=== PATIENT | male | born 1970 | race Caucasian/White ===

== ENCOUNTER 2024-01-29 09:50 | Day surgery (SDC) | payer OTHER ==
[2024-01-23 14:26] VITALS: BMI 33.3
[~2024-01-29 09:50] MED LIST: ALPRAZolam 0.25 MG TAB PO PRN; ASPIRIN 325 MG TAB PO STA; HEPARIN SODIUM,PORCINE (1 ML) 2,500 UNIT in SODIUM CHLORIDE 0.9% 250 ML IRRIGATION PRN; HEPARIN SODIUM,PORCINE 10,000 UNIT in SODIUM CHLORIDE 0.9% 1,000 ML IRRIGATION PRN; NITROGLYCERIN SL TABS 0.4 MG TAB SUBLINGUAL PRN
[2024-01-29] MEDS: SODIUM CHLORIDE 0.9% 1,000 ML in EMPTY BAG 1 BAG IV SCH (10:31)
[2024-01-29] MEDS: ALPRAZolam 0.5 MG TAB PO PRN (10:31)
[2024-01-29] MEDS: IV FLUID CONTINUATION 1,000 ML IV ONE (10:33)
[2024-01-29 10:36] VITALS: RESP 20; TEMP 96.9
[2024-01-29 10:40] LABS: Basophils % (A) 0 %; Eosinophils % (A) 0 %; HCT 43.3 % (39.0-53.0); HGB 14.2 gm/dL (13.0-17.5); Lymphocytes # (A) 1.2 k/uL (1.0-4.8); Lymphocytes % (A) 25 %; MCH 33.1 pg (25.0-35.0); MCHC 32.7 g/dL (31.0-37.0); MCV 101.2 fL (80.0-100.0); Mean Platelet Volume 7.8; Monocytes # (A) 0.2 k/uL (0-1.0); Monocytes % (A) 5 %; Neutrophils # (A) 3.3 k/uL (1.3-7.7); Neutrophils % (A) 68 %; Platelet Count 221 k/uL (150-450); RBC 4.28 m/uL (4.30-5.90); RDW 12.8 % (11.5-15.5); WBC 4.9 k/uL (3.8-10.6)
[2024-01-29 10:52] LABS: African American GFR (CKD) 70 (>60 ml/min/1.73 sqM); Anion Gap 12 mmol/L; Blood Urea Nitrogen 14 mg/dL (9-20); Calcium 9.8 mg/dL (8.4-10.2); Carbon Dioxide 22 mmol/L (22-30); Chloride 103 mmol/L (98-107); Glucose 102 mg/dL (74-99); Non-African American GFR(CKD) 61 (>60 ml/min/1.73 sqM); Potassium 3.9 mmol/L (3.5-5.1); Sodium 137 mmol/L (137-145)
[2024-01-29] MEDS: fentaNYL (PF) 50 MCG/ML 2 ML AMP IVP ONE (12:44)
[2024-01-29] MEDS: MIDAZOLAM 2 MG/2 ML VIAL IVP ONE (12:44)
[2024-01-29] MEDS: LIDOCAINE 1% INJ 10MG/ML (20 ML MDV) SQ ONE (12:45)
[2024-01-29] MEDS: HEPARIN SODIUM 1,000 UN/ML (10ML VL) IVP ONE (12:51)
[2024-01-29] MEDS: IOPAMIDOL-370 100ML BTL INJ ONE (13:04)
[2024-01-29] MEDS ORDERED: RX INFO: IV CONTRAST WAS GIVEN 1 EACH MISC MISCELLANE PRN (13:54)
[2024-01-29] MEDS ORDERED: SODIUM CHLORIDE 0.9% 1,000 ML IV SCH (14:00)
[2024-01-29 15:44] VITALS: BP 101/62; PULSE 87
--- NOTE | 2024-01-29 15:59 | P.CARDCATH ---
Date of Procedure: 01/29/24 Description of Procedure: DIAGNOSTIC CORONARY ANGIOGRAPHY and LEFT HEART CATH REPORT PROCEDURES PERFORMED: Left heart catheterization Selective coronary angiography Moderate conscious sedation 15 mins [Ultrasound assisted] Right radial access INDICATION: Stable anginal symptoms, hypertension, dyslipidemia along with abnormal nuclear stress test showing reversible perfusion defect of moderate intensity moderate size in anterior anterolateral wall. CONSENT: I have explained the procedural steps of above-mentioned procedures in layman's terms to the patient. I discussed the risks (including but not limited to stroke, emergent vascular or cardiac surgery or ), benefits and alternative therapies for the above-mentioned procedure. I discussed the risks of sedation/analgesia and blood product administration (if indicated). The patient has indicated understanding and acceptance of these risks. Conscious Sedation: Patient's ECG, heart rate, blood pressure, pulse oximetry were monitored throughout the duration of procedure under my direct supervision. [2] mg Versed and [50] mcg Fentanyl were used for induction of moderate conscious sedation. Total duration of moderate concious sedation [25] minutes. PROCEDURE: After explaining the risks, benefits and alternatives of the above mentioned procedures in detail to the patient, informed consent was obtained. Patient was taken to the catheterization lab, prepped and draped in usual sterile fashion using universal precuations. Ultrasound was used to identify the radial artery. 1% lidocaine was infiltrated over the right radial artery. A 6-Latvian sheath was placed and secured in the right radial artery using modified Seldinger technique. The sheath was flushed and 5 mg verapamil was administered intra-arterially. J tipped wire was advanced under fluoroscopic guidance. Once the wire tip reached aortic root [5000] units of IV heparin was given. Over the wire a 5 Latvian Beni catheter was advanced. With the help of the wire the Beni catheter was prolapsed across aortic valve to enter the left ventricle. The wire was removed and the catheter was flushed. The catheter was used to obtain the left ventricular pressures. A pullback was performed under fluoroscopy to obtain pressure across aortic valve. The catheter was manipulated to selectively engage the left coronary ostium. Left coronary angiograms performed in different angiographic projections using minimal dye. The catheter was disengaged from the left coronary ostium under fluoroscopy and manipulated to selectively engage the right coronary ostium. Right coronary angiography was performed in different angiographic projections. Catheter was removed over the wire. Radial sheath was flushed. The right radial sheath was removed and a TR band was placed with excellent patent hemostasis was achieved. The patient tolerated the procedure well. Patient was transported back to the post catheterization holding area in stable condition. Angiographic images were reviewed in detail. HEMODYNAMICS: Aortic Pressure: 90/60 mmHg. LV pressure: 90/2 mmHg. LVEDP 10 mmHg. There was no significant gradient across the aortic valve. SELECTIVE CORONARY ARTERIOGRAPHY: LEFT MAIN: The left main is very short and is angiographically patent. It bifurcates into the LAD and circumflex. LEFT ANTERIOR DESCENDING CORONARY ARTERY: LAD is a large caliber vessel which wraps around to the apex. Proximal LAD has mild diffuse luminal irregularities of 10-20%. Mid LAD has 40 to 50% diffuse luminal narrowing. Distal LAD appears angiographically normal. LEFT CIRCUMFLEX CORONARY ARTERY: It is co-dominant vessel. LCx is large caliber. Proximal LCx has minimal luminal irregularities. It gives rise to a high OM1 branch which is a small caliber vessel and has 30 to 40% diffuse luminal irregularities. LCx continues to give a large AV groove branch and a large OM 2 branch. Large OM 2 is patent. AV groove branch distally gives small OM [address] branches which are angiographically patent. RIGHT CORONARY ARTERY: Co- Dominant vessel. The right coronary artery is moderate caliber vessel. Proximal RCA is patent. Distal portion of proximal RCA has 20 to 30% luminal narrowing. Mid and distal RCA is patent. It gives rise to a PDA branch which is patent. IMPRESSION: Angiographically normal coronary arteries as described above. Normal left sided filling pressures PLAN: Abnormal nuclear stress test with reversible perfusion defect with no attenuation artifact most likely related to INOCA. Would correlate with patient's symptoms on further follow-up in clinic. Patient does have Grade II diastolic dysfunction and elevated NT proBNP of 2000. Continue aspirin, start Lipitor 40 mg. Discontinue fenofibrate Continue Jardiance 10 mg daily. On further follow-up if patient's blood pressure is elevated, consider adding ARB/beta-dmitry. 125 cc fluids for 4 hours Discharge home in 4 hours Follow-up in the office in 1-2 weeks. Performing Physician Markus Villalobos MD, FACC, RPVI Thank you for allowing [facility] to participate in this patient's care. Feel free to reach out in case of any followup questions.
== END 2024-01-29 16:20 | disposition home or self-care (01) ==
LOC: CATHCVL 09:50
PROVIDERS: ATTEND Student in an Organized Health Care Education/Training Program
DX: I20.0 Unstable angina (principal); I10 Essential (primary) hypertension; E78.5 Hyperlipidemia, unspecified; E66.9 Obesity, unspecified; F12.90 Cannabis use, unspecified, uncomplicated; Z79.82 Long term (current) use of aspirin; Z79.899 Other long term (current) drug therapy
CPT/HCPCS: 93458; 80048; 85025; 99152; C1769 ×2; C1894; J2250; J2001; J3010; J1644; Q9967